=== PATIENT | male | born 1980 | race Caucasian/White ===

== ENCOUNTER 2016-05-18 21:32 | Emergency (ER) | payer MEDICARE | END 2016-05-18 22:06 | disposition home or self-care (01) | LOC: ER 21:32 | DX: M79.672 Pain in left foot (principal); F17.210 Nicotine dependence, cigarettes, uncomplicated; W13.2XXA Fall from, out of or through roof, initial encounter; Y92.008 Other place in unspecified non-institutional (private) residence as the place of occurrence of the external cause | CPT/HCPCS: 73630; 99070; 99283; 99283-25 ==